=== PATIENT | male | born 1985 | race Two or more races ===

== ENCOUNTER 2021-02-22 22:11 | Emergency (ER) | payer BC, OTHER ==
[~2021-02-22] VITALS: Ht 190.5 cm; Wt 113.4 kg
--- NOTE | 2021-02-22 22:30 | NUR ---
PATIENT [id number] FROM HOME C/O SOB AND DIARRHEA. PATIENT 02 99% UPON ARRIVAL. PATIENT STATED COVID+ 02/15/21.
--- NOTE | 2021-02-22 23:14 | NUR ---
RAD AT BEDSIDE
[2021-02-23] MEDS ORDERED: ONDA4TAB5 PO (00:02)
--- NOTE | 2021-02-23 00:12 | NUR ---
Patient discharged to home in stable condition. Rx and Written and verbal after care instructions given. Patient verbalizes understanding of instruction.
[2021-02-23 00:13] VITALS: BP 141/82
== END 2021-02-23 00:13 | disposition home or self-care (01) ==
LOC: ER 22:13
DX: U07.1 COVID-19 (principal); R19.7 Diarrhea, unspecified; R06.02 Shortness of breath
CPT/HCPCS: 71045-TC